=== PATIENT | female | born 1945 | race Caucasian/White ===

== ENCOUNTER → 2017-01-04 | Outpatient (CLI) | payer MEDICARE, BC ==
--- NOTE | 2017-01-26 14:00 | RSPPFT ---
DATE OF PROCEDURE: 01/04/17 COMMENTS: VOLUMES DYNAMIC: FVC mildly reduced; FEV1 moderately reduced. STATIC: RV mildly increased; TLC mildly decreased; VTG normal. FLOWS: FEV1% moderately reduced; FEF 25-75 severely reduced DIFFUSION: Severely reduced. FLOW VOLUME LOOP: Pattern of variable intrathoracic airways obstruction. IMPRESSION: Moderate obstructive ventilatory defect with reduction in diffusion and mild hyperinflation. Airways resistance is increased. There is minimal change post-bronchodilator.
== END ==
LOC: HRSP 10:01
PROVIDERS: ATTEND Internal Medicine
DX: J44.9 Chronic obstructive pulmonary disease, unspecified (principal)
CPT/HCPCS: 94060; 94620; 94726; 94729